=== PATIENT | female | born 1955 | race Caucasian/White ===

== ENCOUNTER 2016-06-13 15:01 | Inpatient (IN) | payer MEDICARE ==
[2016-06-13 15:08] VITALS: BMI 26.4
[2016-06-13 15:20] LABS: MPV 6.9 fL (7.4-10.4)
[2016-06-13 15:28] LABS: BLOOD UREA NITROGEN 10 MG/DL (7-17); CALCIUM 9.2 MG/DL (8.4-10.2); CALCULATED OSMOLALITY 248 MOs/Kg (270-290); CHLORIDE 81 mEq/L (98-107); GLUCOSE 256 mg/dL (70-99); TOTAL PROTEIN 7.9 G/DL (6.3-8.2)
[2016-06-13 15:31] LABS: PARTIAL THROMB. TIME 25.2 SEC (22-35); PT-INR 1.2; SODIUM LEVEL 124 mEq/L (137-146)
[2016-06-13 15:37] LABS: LEUKOCYTES/URINE NEG (NEGATIVE); NITRITE/URINE NEG (NEGATIVE); RBC/URINE 0-2 (0-5); URINE OCCULT BLOOD NEG (NEG/TRACE); WBC/URINE 0-2 (0-5)
[2016-06-13 15:46] LABS: SEG NEUTROPHIL 78 % (45-76)
[2016-06-13] MEDS ORDERED: SODIUM CHLORIDE 0.9% 10 ML FLUSH FLUSH PRN (16:56)
[2016-06-13] MEDS ORDERED: NS 1,000 ML IV ONE (16:56)
[2016-06-13] MEDS ORDERED: METHYLPREDNISOLONE 125 MG/2 ML VIAL IV ONE (17:09)
[2016-06-13] MEDS ORDERED: Albuterol/Ipratropium Neb 3 ML NEB NEB ONE (17:09)
[2016-06-13] MEDS ORDERED: ONDANSETRON HCL 4 MG/2 ML VIAL IV ONE (17:09)
--- NOTE | 2016-06-13 17:12 | EDPRACDOC ---
- General Information Information Source: Patient - History of Present Illness Onset: one week HPI: Pt c/o "not feeling well" x 1 week with nausea, fatigue, wheezing, non productive cough. Pt states went to PCP office for palpitations this morning and was sent for eval. Denies fever, earache, sore throat, cp, sob, abd pain, changes in bowel or bladder, rash, leg swelling. Symptoms Started: Reports: Gradually Relevant History: Reports: None Heart Rate (bpm): 120 Pulse is: Rapid Worsens with: Reports: Nothing Associated signs & symptoms: Reports: None Chest Pain Location: Reports: No Pain Pain Quality: Reports: None Pain Radiation: Reports: None <[place] Box - Last Filed: 06/13/16 17:51> <Elenita Scott - Last Filed: 06/13/16 19:15> - General Information Chief Complaint: Arrhythmia Stated Complaint: HEART PALP/NO CP SENT FROM DOCTOR'S OFFICE Time Seen by Provider: 06/13/16 16:55 Home Medications: Home Medications Lisinopril/Hydrochlorothiazide [Lisinopril-Hctz 20-25 mg Tab] 1 tab PO DAILY 07/19 MetFORMIN (Immediate Release) [GLUCOPHAGE Immed Release] 500 mg PO DAILY Paroxetine HCl [Paxil] 20 mg PO DAILY 10/08/13 Budesonide/Formoterol Fumarate [Symbicort 80-4.5 Mcg Inhaler] 2 puff INH BID Dexlansoprazole [Dexilant] 60 mg PO DAILY 03/22/16 Glipizide [Glipizide ER] 5 mg PO DAILY 06/13/16 Allergies/Adverse Reactions: Allergies Allergy/AdvReac Type Severity Reaction Status Date / Time codeine [Codeine] Allergy Unknown N&V,HALLUCI Verified 03/22/16 11:58 ALENA hydrocodone bitartrate Allergy Unknown N&V,HALLUCI Verified 03/22/16 11:58 [From Vicodin] ALENA oxycodone [Oxycodone] Allergy Unknown N&V,HALLUCI Verified 03/22/16 11:58 ALENA hydromorphone [From Dilaudid] Allergy See Verified 03/22/16 12:12 Comments Opioids - Morphine Analogues Allergy See Verified 02/06/17 17:13 Comments ED Past Medical History - History Reviewed Yes Nurses notes reviewed and agree except as marked - Patient Medical History Cardiac History: Reports: Atrial Fibrillation, Hypertension Respiratory History: Reports: Asthma GI/ History: Reports: Gastroesophageal Reflux Psychological History: Reports: Depression Systemic History: Reports: Diabetes Surgical History: Reports: Cholecystectomy - Social Medical History Smoking Status: Heavy tobacco smoker (5 or more cigarettes/day or daily pipe/ cigar) ETOH: None Substance Abuse: None <[place] Box - Last Filed: 06/13/16 17:51> EDM Review of Systems - Review of Systems Constitutional: Fatigue Ears: No Symptoms Reported. negative: Pain, Hearing Loss, Drainage, Ear Pulling Throat: No Symptoms Reported. negative: Pain, Swelling Nose: No Symptoms Reported. negative: Congestion, Bleeding, Discharge, Injection, Swelling, Deformity, Ecchymosis, Tender, Abrasion, Laceration Mouth: No Symptoms Reported. negative: Pain, Drooling Respiratory: Cough, Wheezing Cardiovascular: Palpitations Gastrointestinal: Nausea Genitourinary: No Symptoms Reported. negative: Dysuria, Hematuria, Frequency, Discharge, Bleeding, Testicular Pain, Neurological: No Symptoms Reported. negative: Headache, Dizziness, Seizure, Numbness, Weakness, Speech Difficulty, Gait Difficulty Musculoskeletal: No Symptoms Reported. negative: Neck, Chestwall, Ribs, Back, Shoulder, Arm, Elbow, Forearm, Wrist, Hand, Pelvis, Hip, Femur, Knee, Leg, Ankle , Foot Integumentary: No Symptoms Reported. negative: Itching, Rash, Bruising, Wound Allergic/Immunologic: No Symptoms Reported. negative: Hives, Itching Hematologic: No Symptoms Reported. negative: Lymphadenopathy, Easy Bruising, Easy Bleeding Psychiatric: No Symptoms Reported. negative: Anxiety, Depression, Hallucinations, Insomnia, Suicidal <[place] Box - Last Filed: 06/13/16 17:51> - Physical Exam Constitutional: Alert Oriented to: Time, Person, Place Last recorded Vital Signs: Last Vital Signs Temp 97.6 F 06/13/16 15:05 Pulse 112 06/13/16 17:04 Resp 20 06/13/16 17:04 BP 122/74 06/13/16 17:04 Pulse Ox 97 06/13/16 17:04 Oxygen Pulse Oxygen Saturation 97 O2 Device Room Air Oxygen Flow Rate Fraction of Inspired Oxygen ( FIO2) - HEENT Head: Normal ( normocephalic) Eye Exam: Normal (PERRL, EOMI, Sclera white) Neck: Normal (FROM, trachea at midline) - Respiratory/Cardiovascular Respiratory: Wheezes Cardiovascular: Tachycardia - GI Auscultation: Normal (NABS) Palpation: Normal (Soft,No rebound or guarding, non distended) Tenderness: Non tender - Musculoskeletal Back: Normal (Non-Tender) Extremities: Normal (Normal tone, Pulses 2+ No cyanosis or edema, FROM) - Integumentary Skin: Normal, Warm, Dry Lymphatics: Normal (no adenopathy) - Neurologic Memory Impaired: Normal Motor Function: Normal (Normal tone, Pulses 2+ No cyanosis or edema, FROM) Mood Description: Normal Perception: Normal <[place] Box - Last Filed: 06/13/16 17:51> - Physical Exam Last recorded Vital Signs: Last Vital Signs Temp 97.6 F 06/13/16 15:05 Pulse 120 H 06/13/16 17:52 Resp 20 06/13/16 17:04 BP 122/74 06/13/16 17:04 Pulse Ox 97 06/13/16 17:04 Oxygen Pulse Oxygen Saturation 97 O2 Device Room Air Oxygen Flow Rate Fraction of Inspired Oxygen ( FIO2) <Elenita Scott - Last Filed: 06/13/16 19:15> - Differential Diagnosis Atrial fibrillation, Sinus tachycardia, Electrolyte disorder, Hyperthyroidism - Results 06/13/16 15:09 06/13/16 15:09 WBC 9.5 xk/uL (3.8-10.8) 06/13/16 15:09 RBC 4.16 xM/uL (4.20-5.40) L 06/13/16 15:09 Hgb 16.3 g/dL (12.0-16.0) H 06/13/16 15:09 Hct 45.4 % (36-47) 06/13/16 15:09 MCV 109 fL (81-99) H 06/13/16 15:09 MCH 39.1 pg (27-32) H 06/13/16 15:09 MCHC 35.8 g/dl (33-36) 06/13/16 15:09 RDW 14.3 % (11.5-14.5) 06/13/16 15:09 Plt Count 228 xk/uL (130-400) 06/13/16 15:09 MPV 6.9 fL (7.4-10.4) L 06/13/16 15:09 Neut % (Auto) Cancelled 06/13/16 15:09 Lymph % (Auto) Cancelled 06/13/16 15:09 [place] % (Auto) Cancelled 06/13/16 15:09 Eos % (Auto) Cancelled 06/13/16 15:09 Baso % (Auto) Cancelled 06/13/16 15:09 Absolute Neuts (auto) Cancelled 06/13/16 15:09 Absolute Lymphs (auto) Cancelled 06/13/16 15:09 Seg Neuts % (Manual) 78 % (45-76) H 06/13/16 15:09 Band Neutrophils % 1 % (0-5) 06/13/16 15:09 Lymphocytes % (Manual) 16 % (17-44) L 06/13/16 15:09 Monocytes % (Manual) 3 % (0-10) 06/13/16 15:09 Eosinophils % (Manual) 2 % (0-5) 06/13/16 15:09 Absolute Neutrophils 7.51 xk/uL (1.7-8.2) 06/13/16 15:09 Absolute Lymphocytes 1.52 xk/uL (0.65-4.75) 06/13/16 15:09 Platelet Estimate Norm (NORMAL) 06/13/16 15:09 RBC Morphology Norm 06/13/16 15:09 PT 12.0 SEC (9.2-11.2) H 06/13/16 15:09 INR 1.2 06/13/16 15:09 APTT 25.2 SEC (22-35) 06/13/16 15:09 Sodium 124 mEq/L (137-146) L* 06/13/16 15:09 Potassium 3.5 mEq/L (3.5-5.1) 06/13/16 15:09 Chloride 81 mEq/L (98-107) L 06/13/16 15:09 Carbon Dioxide 32 mMOL/L (22-33) 06/13/16 15:09 Anion Gap 15 mEq/L (8-16) 06/13/16 15:09 BUN 10 MG/DL (7-17) 06/13/16 15:09 Creatinine 1.00 MG/DL (0.52-1.04) 06/13/16 15:09 Estimated GFR (MDRD) 56 mL/min (>=60) L 06/13/16 15:09 Glucose 256 mg/dL (70-99) H 06/13/16 15:09 Calculated Osmolality 248 MOs/Kg (270-290) L 06/13/16 15:09 Calcium 9.2 MG/DL (8.4-10.2) 06/13/16 15:09 Total Bilirubin 1.7 MG/DL (0.2-1.3) H 06/13/16 15:09 AST 88 IU/L (14-36) H 06/13/16 15:09 ALT 63 IU/L (9-52) H 06/13/16 15:09 Alkaline Phosphatase 81 IU/L (55-165) 06/13/16 15:09 Troponin I < 0.01 ng/mL (<.04) 06/13/16 15:09 Dkf-W-Sxuobeyvmlh Pept 54 pg/mL (0-900) 06/13/16 15:09 Total Protein 7.9 G/DL (6.3-8.2) 06/13/16 15:09 Albumin 4.5 G/DL (3.5-5.0) 06/13/16 15:09 Urine Color Yellow 06/13/16 15:15 Urine Clarity Clear 06/13/16 15:15 Urine pH 6.0 (5.0-8.0) 06/13/16 15:15 Ur Specific [place] 1.010 (1.003-1.035) 06/13/16 15:15 Urine Protein Neg (NEG/TRACE) 06/13/16 15:15 Urine Glucose (UA) Neg (NEGATIVE) 06/13/16 15:15 Urine Ketones Neg (NEGATIVE) 06/13/16 15:15 Urine Occult Blood Neg (NEG/TRACE) 06/13/16 15:15 Urine Nitrite Neg (NEGATIVE) 06/13/16 15:15 Urine Bilirubin Neg (NEGATIVE) 06/13/16 15:15 Urine Urobilinogen 2 MG/DL (0-1) H 06/13/16 15:15 Ur Leukocyte Esterase Neg (NEGATIVE) 06/13/16 15:15 Urine RBC 0-2 (0-5) 06/13/16 15:15 Urine WBC 0-2 (0-5) 06/13/16 15:15 Ur Epithelial Cells 1+ 06/13/16 15:15 Urine Bacteria Few (NEG/FEW) 06/13/16 15:15 Hyaline Casts 10-20 (0-2) H 06/13/16 15:15 Urine Mucus Occ (NEG/OCC) 06/13/16 15:15 Lab Results 06/13/16 06/13/16 06/13/16 15:15 15:09 15:09 WBC 9.5 RBC 4.16 L Hgb 16.3 H Hct 45.4 MCV 109 H MCH 39.1 H MCHC 35.8 RDW 14.3 Plt Count 228 MPV 6.9 L Neut % (Auto) Cancelled Lymph % (Auto) Cancelled [place] % (Auto) Cancelled Eos % (Auto) Cancelled Baso % (Auto) Cancelled Absolute Neuts (auto) Cancelled Absolute Lymphs (auto) Cancelled Seg Neuts % (Manual) 78 H Band Neutrophils % 1 Lymphocytes % (Manual) 16 L Monocytes % (Manual) 3 Eosinophils % (Manual) 2 Absolute Neutrophils 7.51 Absolute Lymphocytes 1.52 Platelet Estimate Norm RBC Morphology Norm PT 12.0 H INR 1.2 APTT 25.2 Sodium Potassium Chloride Carbon Dioxide Anion Gap BUN Creatinine Estimated GFR (MDRD) Glucose Calculated Osmolality Calcium Total Bilirubin AST ALT Alkaline Phosphatase Troponin I Wfe-L-Mipnenwiopo Pept Total Protein Albumin Urine Color Yellow Urine Clarity Clear Urine pH 6.0 Ur Specific [place] 1.010 Urine Protein Neg Urine Glucose (UA) Neg Urine Ketones Neg Urine Occult Blood Neg Urine Nitrite Neg Urine Bilirubin Neg Urine Urobilinogen 2 H Ur Leukocyte Esterase Neg Urine RBC 0-2 Urine WBC 0-2 Ur Epithelial Cells 1+ Urine Bacteria Few Hyaline Casts 10-20 H Urine Mucus Occ 06/13/16 15:09 WBC RBC Hgb Hct MCV MCH MCHC RDW Plt Count MPV Neut % (Auto) Lymph % (Auto) [place] % (Auto) Eos % (Auto) Baso % (Auto) Absolute Neuts (auto) Absolute Lymphs (auto) Seg Neuts % (Manual) Band Neutrophils % Lymphocytes % (Manual) Monocytes % (Manual) Eosinophils % (Manual) Absolute Neutrophils Absolute Lymphocytes Platelet Estimate RBC Morphology PT INR APTT Sodium 124 L* Potassium 3.5 Chloride 81 L Carbon Dioxide 32 Anion Gap 15 BUN 10 Creatinine 1.00 Estimated GFR (MDRD) 56 L Glucose 256 H Calculated Osmolality 248 L Calcium 9.2 Total Bilirubin 1.7 H AST 88 H ALT 63 H Alkaline Phosphatase 81 Troponin I < 0.01 Ukl-C-Xzofrmgwqwg Pept 54 Total Protein 7.9 Albumin 4.5 Urine Color Urine Clarity Urine pH Ur Specific [place] Urine Protein Urine Glucose (UA) Urine Ketones Urine Occult Blood Urine Nitrite Urine Bilirubin Urine Urobilinogen Ur Leukocyte Esterase Urine RBC Urine WBC Ur Epithelial Cells Urine Bacteria Hyaline Casts Urine Mucus - EKG EKG #1 Initial EKG Time: 15:05 Rate: bpm: 113 [place]: Normal Rhythm: ST Block: None ST: Nonsp - Diagnostic Imaging Chest Image interpreted by: Radiologist IMPRESSION: COPD. No active disease. <[place] Box E - Last Filed: 06/13/16 17:51> - Results 06/13/16 15:09 06/13/16 15:09 WBC 9.5 xk/uL (3.8-10.8) 06/13/16 15:09 RBC 4.16 xM/uL (4.20-5.40) L 06/13/16 15:09 Hgb 16.3 g/dL (12.0-16.0) H 06/13/16 15:09 Hct 45.4 % (36-47) 06/13/16 15:09 MCV 109 fL (81-99) H 06/13/16 15:09 MCH 39.1 pg (27-32) H 06/13/16 15:09 MCHC 35.8 g/dl (33-36) 06/13/16 15:09 RDW 14.3 % (11.5-14.5) 06/13/16 15:09 Plt Count 228 xk/uL (130-400) 06/13/16 15:09 MPV 6.9 fL (7.4-10.4) L 06/13/16 15:09 Neut % (Auto) Cancelled 06/13/16 15:09 Lymph % (Auto) Cancelled 06/13/16 15:09 [place] % (Auto) Cancelled 06/13/16 15:09 Eos % (Auto) Cancelled 06/13/16 15:09 Baso % (Auto) Cancelled 06/13/16 15:09 Absolute Neuts (auto) Cancelled 06/13/16 15:09 Absolute Lymphs (auto) Cancelled 06/13/16 15:09 Seg Neuts % (Manual) 78 % (45-76) H 06/13/16 15:09 Band Neutrophils % 1 % (0-5) 06/13/16 15:09 Lymphocytes % (Manual) 16 % (17-44) L 06/13/16 15:09 Monocytes % (Manual) 3 % (0-10) 06/13/16 15:09 Eosinophils % (Manual) 2 % (0-5) 06/13/16 15:09 Absolute Neutrophils 7.51 xk/uL (1.7-8.2) 06/13/16 15:09 Absolute Lymphocytes 1.52 xk/uL (0.65-4.75) 06/13/16 15:09 Platelet Estimate Norm (NORMAL) 06/13/16 15:09 RBC Morphology Norm 06/13/16 15:09 PT 12.0 SEC (9.2-11.2) H 06/13/16 15:09 INR 1.2 06/13/16 15:09 APTT 25.2 SEC (22-35) 06/13/16 15:09 Sodium 124 mEq/L (137-146) L* 06/13/16 15:09 Potassium 3.5 mEq/L (3.5-5.1) 06/13/16 15:09 Chloride 81 mEq/L (98-107) L 06/13/16 15:09 Carbon Dioxide 32 mMOL/L (22-33) 06/13/16 15:09 Anion Gap 15 mEq/L (8-16) 06/13/16 15:09 BUN 10 MG/DL (7-17) 06/13/16 15:09 Creatinine 1.00 MG/DL (0.52-1.04) 06/13/16 15:09 Estimated GFR (MDRD) 56 mL/min (>=60) L 06/13/16 15:09 Glucose 256 mg/dL (70-99) H 06/13/16 15:09 Calculated Osmolality 248 MOs/Kg (270-290) L 06/13/16 15:09 Calcium 9.2 MG/DL (8.4-10.2) 06/13/16 15:09 Total Bilirubin 1.7 MG/DL (0.2-1.3) H 06/13/16 15:09 AST 88 IU/L (14-36) H 06/13/16 15:09 ALT 63 IU/L (9-52) H 06/13/16 15:09 Alkaline Phosphatase 81 IU/L (55-165) 06/13/16 15:09 Troponin I < 0.01 ng/mL (<.04) 06/13/16 15:09 Wqf-Y-Qokdeqgewwh Pept 54 pg/mL (0-900) 06/13/16 15:09 Total Protein 7.9 G/DL (6.3-8.2) 06/13/16 15:09 Albumin 4.5 G/DL (3.5-5.0) 06/13/16 15:09 TSH 0.80 uIU/mL (0.5-4.67) 06/13/16 15:09 Free T4 1.54 ng/dL (0.78-2.19) 06/13/16 15:09 Free T3 3.42 pg/mL (2.77-5.27) 06/13/16 15:09 Urine Color Yellow 06/13/16 15:15 Urine Clarity Clear 06/13/16 15:15 Urine pH 6.0 (5.0-8.0) 06/13/16 15:15 Ur Specific [place] 1.010 (1.003-1.035) 06/13/16 15:15 Urine Protein Neg (NEG/TRACE) 06/13/16 15:15 Urine Glucose (UA) Neg (NEGATIVE) 06/13/16 15:15 Urine Ketones Neg (NEGATIVE) 06/13/16 15:15 Urine Occult Blood Neg (NEG/TRACE) 06/13/16 15:15 Urine Nitrite Neg (NEGATIVE) 06/13/16 15:15 Urine Bilirubin Neg (NEGATIVE) 06/13/16 15:15 Urine Urobilinogen 2 MG/DL (0-1) H 06/13/16 15:15 Ur Leukocyte Esterase Neg (NEGATIVE) 06/13/16 15:15 Urine RBC 0-2 (0-5) 06/13/16 15:15 Urine WBC 0-2 (0-5) 06/13/16 15:15 Ur Epithelial Cells 1+ 06/13/16 15:15 Urine Bacteria Few (NEG/FEW) 06/13/16 15:15 Hyaline Casts 10-20 (0-2) H 06/13/16 15:15 Urine Mucus Occ (NEG/OCC) 06/13/16 15:15 Lab Results 06/13/16 06/13/16 06/13/16 15:15 15:09 15:09 WBC RBC Hgb Hct MCV MCH MCHC RDW Plt Count MPV Neut % (Auto) Lymph % (Auto) [place] % (Auto) Eos % (Auto) Baso % (Auto) Absolute Neuts (auto) Absolute Lymphs (auto) Seg Neuts % (Manual) Band Neutrophils % Lymphocytes % (Manual) Monocytes % (Manual) Eosinophils % (Manual) Absolute Neutrophils Absolute Lymphocytes Platelet Estimate RBC Morphology PT 12.0 H INR 1.2 APTT 25.2 Sodium Potassium Chloride Carbon Dioxide Anion Gap BUN Creatinine Estimated GFR (MDRD) Glucose Calculated Osmolality Calcium Total Bilirubin AST ALT Alkaline Phosphatase Troponin I Kbn-V-Lduwmqjwdrc Pept Total Protein Albumin TSH 0.80 Free T4 1.54 Free T3 3.42 Urine Color Yellow Urine Clarity Clear Urine pH 6.0 Ur Specific [place] 1.010 Urine Protein Neg Urine Glucose (UA) Neg Urine Ketones Neg Urine Occult Blood Neg Urine Nitrite Neg Urine Bilirubin Neg Urine Urobilinogen 2 H Ur Leukocyte Esterase Neg Urine RBC 0-2 Urine WBC 0-2 Ur Epithelial Cells 1+ Urine Bacteria Few Hyaline Casts 10-20 H Urine Mucus Occ 06/13/16 06/13/16 15:09 15:09 WBC 9.5 RBC 4.16 L Hgb 16.3 H Hct 45.4 MCV 109 H MCH 39.1 H MCHC 35.8 RDW 14.3 Plt Count 228 MPV 6.9 L Neut % (Auto) Cancelled Lymph % (Auto) Cancelled [place] % (Auto) Cancelled Eos % (Auto) Cancelled Baso % (Auto) Cancelled Absolute Neuts (auto) Cancelled Absolute Lymphs (auto) Cancelled Seg Neuts % (Manual) 78 H Band Neutrophils % 1 Lymphocytes % (Manual) 16 L Monocytes % (Manual) 3 Eosinophils % (Manual) 2 Absolute Neutrophils 7.51 Absolute Lymphocytes 1.52 Platelet Estimate Norm RBC Morphology Norm PT INR APTT Sodium 124 L* Potassium 3.5 Chloride 81 L Carbon Dioxide 32 Anion Gap 15 BUN 10 Creatinine 1.00 Estimated GFR (MDRD) 56 L Glucose 256 H Calculated Osmolality 248 L Calcium 9.2 Total Bilirubin 1.7 H AST 88 H ALT 63 H Alkaline Phosphatase 81 Troponin I < 0.01 Khm-M-Wdgjojikvjb Pept 54 Total Protein 7.9 Albumin 4.5 TSH Free T4 Free T3 Urine Color Urine Clarity Urine pH Ur Specific [place] Urine Protein Urine Glucose (UA) Urine Ketones Urine Occult Blood Urine Nitrite Urine Bilirubin Urine Urobilinogen Ur Leukocyte Esterase Urine RBC Urine WBC Ur Epithelial Cells Urine Bacteria Hyaline Casts Urine Mucus <Elenita Scott N - Last Filed: 06/13/16 19:15> - Departure Education/Counseling Given To: Patient Education/Counseling Given Regarding: Diagnosis, Treatment <[place] Box - Last Filed: 06/13/16 17:51> - Departure Yes I personally saw and evaluated the patient. Disposition: Admit IP To This Hospital Decision to Admit Time: 19:15 Decision to admit date: 06/13/16 Decision to admit: from ED - Physician Consulted Hospitalist Time Called: 19:10 Provider Called: Abisai Bhatia Time Vending Machine Repairer Returned Call: 19:15 <Elenita Scott N - Last Filed: 06/13/16 19:15> - Departure Condition: Stable Final Diagnosis: COPD exacerbation, Hyponatremia Referrals: Jayde Saldivar MD [Primary Care Provider] - One Week Prescriptions: No Action Paroxetine HCl [Paxil] 20 mg PO DAILY MetFORMIN (Immediate Release) [GLUCOPHAGE Immed Release] 500 mg PO DAILY Lisinopril/Hydrochlorothiazide [Lisinopril-Hctz 20-25 mg Tab] 1 tab PO DAILY Dexlansoprazole [Dexilant] 60 mg PO DAILY Budesonide/Formoterol Fumarate [Symbicort 80-4.5 Mcg Inhaler] 2 puff INH BID Glipizide [Glipizide ER] 5 mg PO DAILY
--- NOTE | 2016-06-13 17:50 | DIRPT ---
CLINICAL DATA: Palpitations, cough. EXAM: CHEST 2 VIEW COMPARISON: 03/22/2016 FINDINGS: There is hyperinflation of the lungs compatible with COPD. Heart and mediastinal contours are within normal limits. No focal opacities or effusions. No acute bony abnormality. IMPRESSION: COPD. No active disease. Electronically Signed By: Bonifacio Garcia M.D. On: 06/13/2016 17:47
[2016-06-13 18:09] LABS: FREE T3 3.42 pg/mL (2.77-5.27); FREE T4 1.54 ng/dL (0.78-2.19)
[2016-06-13 18:23] LABS: hTSH 0.8 uIU/mL (0.5-4.67)
[2016-06-13] MEDS ORDERED: ACETAMINOPHEN 325 MG/TAB TABLET PO PRN (20:10)
[2016-06-13] MEDS ORDERED: DEXTROSE 25 GM/50 ML PFS IV PRN (20:15)
[2016-06-13] MEDS ORDERED: GLUCOSE (ORAL GEL) 15 GM TUBE PO PRN (20:15)
[2016-06-13] MEDS ORDERED: GLUCAGON 1 MG VIAL SQ PRN (20:15)
--- NOTE | 2016-06-13 20:18 | HISTPHYS ---
- Chief Complaint Hyponatremia - History of Present Illness This is a pleasant 61-year-old female with a history of diabetes and hypertension, as well as COPD who was being admitted to the hospital due to increased cough, possible COPD exacerbation as well as hyponatremia. Patient says that she has been feeling weak and ill for the last 2-3 weeks, feeling weak overall, denies any fevers or chills, she has a continued cough which is chronic for her, it is slightly more productive than usual, but she denies any hypoxia or shortness of breath at rest or with exertion. She says that for the last couple weeks she has been eating she is vomited most of the time, she does have IBS and some chronic diarrhea, but the vomiting has been new. She has not had any sick contacts, denies any body aches or aches in her joints. No muscle aches. Note that her sputum is not discolored, but is little bit more than usual. She is also quite wheezy. Today, she noticed palpitations and went to see her primary care physician, who sent her to the emergency department. Here , she was found to have possible COPD exacerbation, and also a sodium of 124 which is new for her. However, she does note that her primary care doctor told her previously to try and drink less fluids, as her sodium was a little bit on the low side. No new medications. - Medical History Cardiac History: Reports: Atrial Fibrillation, Hypertension Respiratory History: Reports: Asthma GI/ History: Reports: Gastroesophageal Reflux Systemic History: Reports: Diabetes Psychological History: Reports: Depression - Surgical History Reports: Cholecystectomy - Medictions/Allergies Allergies codeine [Codeine] Allergy (Unknown, Verified 03/22/16 11:58) N&V,HALLUCINATE hydrocodone bitartrate [From Vicodin] Allergy (Unknown, Verified 03/22/16 11:58) N&V,HALLUCINATE oxycodone [Oxycodone] Allergy (Unknown, Verified 03/22/16 11:58) N&V,HALLUCINATE hydromorphone [From Dilaudid] Allergy (Verified 03/22/16 12:12) See Comments HALLUCINATIONS Opioids - Morphine Analogues Allergy (Verified 06/13/16 17:13) See Comments PT STATES SHE CANT TOLERATE ANY OPIATES. Home Medications Lisinopril/Hydrochlorothiazide [Lisinopril-Hctz 20-25 mg Tab] 1 tab PO DAILY 07/19 MetFORMIN (Immediate Release) [GLUCOPHAGE Immed Release] 500 mg PO DAILY Paroxetine HCl [Paxil] 20 mg PO DAILY 10/08/13 Budesonide/Formoterol Fumarate [Symbicort 80-4.5 Mcg Inhaler] 2 puff INH BID Dexlansoprazole [Dexilant] 60 mg PO DAILY 03/22/16 Glipizide [Glipizide ER] 5 mg PO DAILY 06/13/16 - Social History Smoking Status: Heavy tobacco smoker (5 or more cigarettes/day or daily pipe/ cigar) - Review of Systems Yes All systems reviewed and were negative except as marked (And as mentioned in the history of present illness above.) - Physical Exam Vital Signs: Initial Vitals Temperature 97.6 F 06/13/16 15:05 Pulse Rate 121 H 06/13/16 15:05 Respiratory Rate 18 06/13/16 15:05 Blood Pressure 166/74 06/13/16 15:05 Pulse Oxygen Saturation 97 06/13/16 15:05 - Focused CV Perfusion Exam Vital Signs: Last Vital Signs Temp 97.6 F 06/13/16 15:05 Pulse 120 H 06/13/16 17:52 Resp 20 06/13/16 17:04 BP 122/74 06/13/16 17:04 Pulse Ox 97 06/13/16 17:04 - Lab Results Laboratory Tests 06/13/16 06/13/16 06/13/16 15:09 15:09 15:09 WBC 9.5 Hgb 16.3 H Hct 45.4 Plt Count 228 INR 1.2 Sodium 124 L* Potassium 3.5 BUN 10 Creatinine 1.00 - Diagnostic Findings Chest x-ray: There is hyperinflation of the lungs compatible with COPD. Heart and mediastinal contours are within normal limits. No focal opacities or effusions. No acute bony abnormality. - Assessment (1) Hyponatremia E87.1 - HYPO-OSMOLALITY AND HYPONATREMIA Acute Likely multifactorial, related to increased free water intake, increased insensible losses due to recent increased cough, as well as some vomiting all of which may have resulted in some dehydration related hyponatremia. Notice that the patient is also on hydrochlorothiazide, which is not a new medication but can also be causing some hyponatremia. Will treat by adding of 2 L fluid restriction per 24 hour time period, discontinuing hydrochlorothiazide for now, and hydrating gently with normal saline. She is not symptomatic of her hyponatremia at this time, will check sodium level again in the morning. (2) Palpitation R00.2 - PALPITATIONS Acute She has sinus tachycardia here in the hospital. (3) DMII (diabetes mellitus, type 2) E11.9 - TYPE 2 DIABETES MELLITUS WITHOUT COMPLICATIONS Acute Continue home medications, check hemoglobin A1c and urine microalbumin. Diabetic diet. Add sliding scale insulin. (4) HTN (hypertension) I10 - ESSENTIAL (PRIMARY) HYPERTENSION Acute Continue home medications, but no hydrochlorothiazide as noted above. (5) COPD exacerbation J44.1 - CHRONIC OBSTRUCTIVE PULMONARY DISEASE W (ACUTE) EXACERBATION Ruled- out There is some suspicion of COPD exacerbation, but she has no leukocytosis , no significantly increased cough, no chest x-ray abnormality and no increased wheezing or hypoxia. As such, will not be treating for COPD exacerbation.
[2016-06-13] MEDS ORDERED: AZITHROMYCIN 500 MG in D5W 250 ML IV SCH (21:00)
[2016-06-13] MEDS ORDERED: Non-Formulary Medication ITEM (Budesonide/Formoterol Fumarate [Symbicort 80-4.5 Mcg Inha INH SCH (21:00)
[2016-06-13] MEDS ORDERED: METHYLPREDNISOLONE 40 MG/1 ML VIAL IV SCH (21:00)
[2016-06-13] MEDS: NS 1,000 ML IV SCH (21:35)
[2016-06-13] MEDS ORDERED: Vaccine Screening Complete SCH (22:00)
[2016-06-13] MEDS ORDERED: CEFTRIAXONE 1 GM in D5W 100 ML IV SCH (22:00)
[2016-06-13] MEDS: REGULAR INSULIN 100 UNITS/ML - 3 ML VIAL SQ SCH ×2 (22:23→23:49)
[2016-06-13] MEDS: ENOXAPARIN 40 MG/0.4 ML PFS SQ SCH (22:24)
[2016-06-13] MEDS ORDERED: LORAZEPAM 1 MG TAB PO PRN ×2 (23:11)
[2016-06-13] MEDS ORDERED: LORAZEPAM 2 MG/ML VIAL IV PRN ×3 (23:11)
[2016-06-13] MEDS ORDERED: Alcohol Withdrawal Scale Orders XX SCH (23:45)
[2016-06-13] MEDS: FOLIC ACID 1 MG, THIAMINE 100 MG, VITAMINS, MULTIPLE 10 ML in NS 1,000 ML IV SCH ×4 (23:48)
[2016-06-13] MEDS: LORAZEPAM 1 MG TAB PO PRN (23:49)
[2016-06-14] MEDS ORDERED: VITAMINS,PRENATAL TABLET PO ONE
[2016-06-14] MEDS: Albuterol/Ipratropium Neb 3 ML NEB NEB SCH ×4 (02:17→19:34)
[2016-06-14] MEDS: REGULAR INSULIN 100 UNITS/ML - 3 ML VIAL SQ SCH ×4 (05:21→21:52)
[2016-06-14] MEDS: PANTOPRAZOLE 40 MG TAB PO SCH ×2 (05:24→05:26)
[2016-06-14] MEDS: NS 1,000 ML IV SCH ×3 (05:26→21:51)
[2016-06-14] MEDS ORDERED: REGULAR INSULIN 100 UNITS/ML - 3 ML VIAL IV ONE (07:07)
[2016-06-14] MEDS: BUDESONIDE 0.5 MG NEB NEB SCH ×2 (07:19→19:37)
[2016-06-14 08:07] LABS: MPV 7.4 fL (7.4-10.4)
[2016-06-14 08:14] LABS: BLOOD UREA NITROGEN 13 MG/DL (7-17); CALCIUM 9.1 MG/DL (8.4-10.2); CALCULATED OSMOLALITY 260 MOs/Kg (270-290); CHLORIDE 90 mEq/L (98-107); GLUCOSE 224 mg/dL (70-99); SODIUM LEVEL 131 mEq/L (137-146)
[2016-06-14] MEDS: PAROXETINE 20 MG TAB PO SCH (08:43)
[2016-06-14] MEDS: LISINOPRIL 20 MG TAB PO SCH (08:43)
[2016-06-14] MEDS: MetFORMIN 500 MG IMMED RELEASE TAB PO SCH (08:43)
[2016-06-14] MEDS: GLIPIZIDE 5 MG PO SCH (08:43)
[2016-06-14] MEDS ORDERED: Non-Formulary Medication ITEM (Dexlansoprazole [Dexilant] 60 MG) PO SCH (09:00)
--- NOTE | 2016-06-14 09:15 | DIRPT ---
CLINICAL DATA: Palpitations, difficulty breathing EXAM: CHEST 2 VIEW COMPARISON: 06/13/2016 FINDINGS: Cardiac shadow is within normal limits. The lungs are well aerated bilaterally. No focal infiltrate or sizable effusion is seen. Postsurgical changes in the cervical spine are noted. No acute bony abnormality is noted. Chronic compression deformity in the lower thoracic spine is seen. IMPRESSION: No active cardiopulmonary disease. Electronically Signed By: Deangelo Goodwin M.D. On: 06/14/2016 09:12
--- NOTE | 2016-06-14 15:33 | GENMEDPROG ---
Subjective Note: Pleasant 61-year-old female fairly heavy drinker from best I can discern presented to the emergency department last night with hyponatremia. She states she drinks a couple of half pt of whiskey at night but not every night. Sodium levels are improving today. Notes Reviewed: Yes: Events from last night noted and discussed with Clinical Staff Current Medication List: Reviewed Currently: Reports: Cough, SOB, Tobacco Use/Hx, Alcohol Hx, Ambulating. Denies : Wheezing, Sputum, Fever/Chills DVT Prophylaxis: Yes - Physical Examination Vital Signs and I&O: Last Vital Signs Temp 98.8 F 06/14/16 13:28 Pulse 104 06/14/16 13:28 Resp 18 06/14/16 13:28 BP 148/66 06/14/16 13:28 Pulse Ox 96 06/14/16 13:28 Oxygen Pulse Oxygen Saturation 96 O2 Device Room Air Oxygen Flow Rate Fraction of Inspired Oxygen ( FIO2) Intake & Output 06/11/16 06/12/16 06/13/16 06/14/16 23:59 23:59 23:59 23:59 Intake Total 1390 2355 Output Total 1000 Balance 390 2355 General: Alert, Oriented x3, No acute distress, Well appearing, Well nourished HEENT: Normal (Normocephalic, atraumatic;EOMI.Sclera white, Nares patent, without discharge or bleeding. No oropharyngeal lesions or erythema. Mucous membranes are dry.) Neck: Non-tender, Full range of motion, Normal Trachea alignment, Normal inspection (No cervical lymphadenopathy. No supraclavicular lymphadenopathy.), No Masses palpable, Supple Lymphatics: Normal (no adenopathy) Respiratory: Diminished, Rhonchi. negative: Stridor, Tachypnea Cardiovascular: Regular rate and rhythm (No bradycardia or tachycardia), Normal S1, No Gallops,Rubs/Murmurs, Normal S2, Good Pedal Pulses (DP pulses 2+ bilaterally) GI: Normal bowel sounds (normal active sounds), Soft (non-distended), Non tender , No hepatospenomegaly, No masses Extremities/Musculoskeletal: Normal pulses (DP pulses 2+ bilaterally) Skin: Warm,Dry and Intact, No rashes, No significant lesion Neurological: Other (Significant tremor of the hands bilaterally) Psych/Mental Status: Appropriate Lab/DI/Studies Reviewed: Abnormal Lab Results 06/13/16 06/13/16 06/13/16 15:09 15:09 15:09 RBC 4.16 L Hgb 16.3 H MCV 109 H MCH 39.1 H MPV 6.9 L Seg Neuts % (Manual) 78 H Lymphocytes % (Manual) 16 L Sodium 124 L* Potassium Chloride 81 L Estimated GFR (MDRD) 56 L Glucose 256 H POC Capillary Glucose Hemoglobin A1c 6.2 H Calculated Osmolality 248 L Total Bilirubin 1.7 H AST 88 H ALT 63 H Urine Urobilinogen Hyaline Casts 06/13/16 06/13/16 06/13/16 15:15 22:23 23:44 RBC Hgb MCV MCH MPV Seg Neuts % (Manual) Lymphocytes % (Manual) Sodium Potassium Chloride Estimated GFR (MDRD) Glucose POC Capillary Glucose 470 H 475 H Hemoglobin A1c Calculated Osmolality Total Bilirubin AST ALT Urine Urobilinogen 2 H Hyaline Casts 10-20 H 06/14/16 06/14/16 06/14/16 02:29 05:19 07:00 RBC Hgb MCV MCH MPV Seg Neuts % (Manual) Lymphocytes % (Manual) Sodium 131 L D Potassium 3.2 L Chloride 90 L Estimated GFR (MDRD) Glucose 224 H POC Capillary Glucose 327 H 284 H Hemoglobin A1c Calculated Osmolality 260 L Total Bilirubin AST ALT Urine Urobilinogen Hyaline Casts 06/14/16 06/14/16 06/14/16 07:00 07:31 11:37 RBC 3.62 L Hgb MCV 110 H MCH 39.6 H MPV Seg Neuts % (Manual) Lymphocytes % (Manual) Sodium Potassium Chloride Estimated GFR (MDRD) Glucose POC Capillary Glucose 229 H 281 H Hemoglobin A1c Calculated Osmolality Total Bilirubin AST ALT Urine Urobilinogen Hyaline Casts EXAM: CHEST 2 VIEW COMPARISON: 06/13/2016 FINDINGS: Cardiac shadow is within normal limits. The lungs are well aerated bilaterally. No focal infiltrate or sizable effusion is seen. Postsurgical changes in the cervical spine are noted. No acute bony abnormality is noted. Chronic compression deformity in the lower thoracic spine is seen. IMPRESSION: No active cardiopulmonary disease. Electronically Signed By: Deangelo Goodwin M.D. On: 06/14/2016 09:12 - Assessment (1) Hyponatremia Acute E87.1 - HYPO-OSMOLALITY AND HYPONATREMIA Comment/Plan: Likely multifactorial but improving. Continue to hold hydrochlorothiazide and continue free water restriction. (2) Palpitation Acute R00.2 - PALPITATIONS Comment/Plan: She may have a little bit of holiday heart associated with her alcohol use. No evidence of that here in the hospital. (3) DMII (diabetes mellitus, type 2) Acute E11.9 - TYPE 2 DIABETES MELLITUS WITHOUT COMPLICATIONS Qualifiers: Diabetes mellitus complication status: with hyperglycemia Diabetes mellitus tank terminal gauger insulin use: without tank terminal gauger use Qualified Code(s): E11.65 - Type 2 diabetes mellitus with hyperglycemia Comment/Plan: Continue home medications, check hemoglobin A1c and urine microalbumin. Diabetic diet. Add sliding scale insulin. Diabetes should improve once alcohol drinking is her but (4) HTN (hypertension) Acute I10 - ESSENTIAL (PRIMARY) HYPERTENSION Comment/Plan: Continue home medications, but no hydrochlorothiazide as noted above. (5) COPD exacerbation Ruled-out J44.1 - CHRONIC OBSTRUCTIVE PULMONARY DISEASE W (ACUTE) EXACERBATION Comment/Plan: I believe the patient has some degree of CHRONIC OBSTRUCTIVE PULMONARY DISEASE but currently does not have exacerbation. I think her lung sounds are baseline given the amount of smoking she participates in. - Plan Continue hydration patient ambulate in halls Disposition Plan: Hopefully home in 24-48 hours Case Care Discussed with: Patient, Family, Nursing Staff Education/Counseling Given To: Patient, Family Member Education/Counseling Given Regarding: Diagnosis, Treatment, Prognosis, Follow Up , Disposition Plan Total Time: 45 min Critical Care: No Couseling Time (>50% in counseling/coordination): No
[2016-06-14] MEDS: ENOXAPARIN 40 MG/0.4 ML PFS SQ SCH (16:45)
[2016-06-14] MEDS: LORAZEPAM 1 MG TAB PO PRN (21:58)
[2016-06-14] MEDS: FOLIC ACID 1 MG, THIAMINE 100 MG, VITAMINS, MULTIPLE 10 ML in NS 1,000 ML IV SCH ×4 (23:40)
[2016-06-15] MEDS: Albuterol/Ipratropium Neb 3 ML NEB NEB SCH ×3 (01:45→15:30)
[2016-06-15 05:41] VITALS: TEMP 98.5
[2016-06-15] MEDS: PANTOPRAZOLE 40 MG TAB PO SCH (05:55)
[2016-06-15] MEDS: REGULAR INSULIN 100 UNITS/ML - 3 ML VIAL SQ SCH ×2 (05:56→11:31)
[2016-06-15 07:35] LABS: MPV 7.1 fL (7.4-10.4)
[2016-06-15] MEDS: BUDESONIDE 0.5 MG NEB NEB SCH (07:57)
[2016-06-15 08:05] LABS: BLOOD UREA NITROGEN 12 MG/DL (7-17); CALCIUM 8.3 MG/DL (8.4-10.2); CALCULATED OSMOLALITY 266 MOs/Kg (270-290); CHLORIDE 100 mEq/L (98-107); GLUCOSE 135 mg/dL (70-99); SODIUM LEVEL 137 mEq/L (137-146)
[2016-06-15] MEDS: PAROXETINE 20 MG TAB PO SCH (08:18)
[2016-06-15] MEDS: GLIPIZIDE 5 MG PO SCH (08:18)
[2016-06-15] MEDS: MetFORMIN 500 MG IMMED RELEASE TAB PO SCH (08:18)
[2016-06-15] MEDS: LISINOPRIL 20 MG TAB PO SCH (08:18)
[2016-06-15 09:47] VITALS: BP 161/65; PULSE 96
--- NOTE | 2016-06-15 13:25 | PCM.DCS92 ---
- Final/Secondary Discharge Diagnosis (1) Hyponatremia Acute E87.1 - HYPO-OSMOLALITY AND HYPONATREMIA Comment: Likely multifactorial but improving. Continue to hold hydrochlorothiazide and continue free water restriction. (2) Palpitation Acute R00.2 - PALPITATIONS Comment: She may have a little bit of holiday heart associated with her alcohol use. No evidence of that here in the hospital. (3) DMII (diabetes mellitus, type 2) Acute E11.9 - TYPE 2 DIABETES MELLITUS WITHOUT COMPLICATIONS with hyperglycemia without rat exterminator use E11.65 - Type 2 diabetes mellitus with hyperglycemia Comment: Continue home medications, check hemoglobin A1c and urine microalbumin. Diabetic diet. Add sliding scale insulin. Diabetes should improve once alcohol drinking is her but (4) HTN (hypertension) Acute I10 - ESSENTIAL (PRIMARY) HYPERTENSION Comment: Continue home medications, but no hydrochlorothiazide as noted above. (5) COPD exacerbation Ruled-out J44.1 - CHRONIC OBSTRUCTIVE PULMONARY DISEASE W (ACUTE) EXACERBATION Comment: I believe the patient has some degree of CHRONIC OBSTRUCTIVE PULMONARY DISEASE but currently does not have exacerbation. I think her lung sounds are baseline given the amount of smoking she participates in. (6) Tobacco abuse Chronic Z72.0 - TOBACCO USE Present on Admission: Yes Plan/Goal/Comment: Patient counseled for 11 minutes on the day of discharge to discontinue smoking. She feels that she will be able to do so because she is able to "turn on and turn off things like that". (7) Alcohol use Chronic Z78.9 - OTHER SPECIFIED HEALTH STATUS Present on Admission: Yes Plan/Goal/Comment: Explained to patient that her tremulousness is directly related to her alcohol use. And that is discontinuing use of alcohol will preserve her brain and liver function for years to come. Discharge Disposition: Home Discharge Condition: Improved Cognitive Discharge Status: Unimpaired Fuctional Discharge Status: Independent Physician Follow up/Referrals: Jayde Saldivar MD [Primary Care Provider] - One Week Home Medications / New Prescriptions: No Action Paroxetine HCl [Paxil] 20 mg PO DAILY MetFORMIN (Immediate Release) [GLUCOPHAGE Immed Release] 500 mg PO DAILY Lisinopril/Hydrochlorothiazide [Lisinopril-Hctz 20-25 mg Tab] 1 tab PO DAILY Dexlansoprazole [Dexilant] 60 mg PO DAILY Budesonide/Formoterol Fumarate [Symbicort 80-4.5 Mcg Inhaler] 2 puff INH BID Glipizide [Glipizide ER] 5 mg PO DAILY Discharge Home Medication List MetFORMIN (Immediate Release) [GLUCOPHAGE Immed Release] 500 mg PO DAILY [History Confirmed 06/13/16] Paroxetine HCl [Paxil] 20 mg PO DAILY 10/08/13 [History Confirmed 06/13/16] Budesonide/Formoterol Fumarate [Symbicort 80-4.5 Mcg Inhaler] 2 puff INH BID [History Confirmed 06/13/16] Dexlansoprazole [Dexilant] 60 mg PO DAILY 03/22/16 [History Confirmed 06/13/16] Glipizide [Glipizide ER] 5 mg PO DAILY 06/13/16 [History Confirmed 06/13/16] Azithromycin 500 mg PO DAILY #3 tablet 06/15/16 [Rx] Lisinopril [Zestril] 20 mg PO DAILY #30 tablet 06/15/16 [Rx] Prednisone [Sterapred 6 Day Dose Pack] 21 tab PO DAILY #1 pack 06/15/16 [Rx] Thiamine [Thiamine, Vitamin B-1] 100 mg PO DAILY@1200 #30 tablet 06/15/16 [Rx] Vitamins, [ Vitamin] 1 tab PO DAILY@1200 #30 tablet 06/15/16 [ Rx] New Discharge Medications (Rx) Azithromycin 500 mg PO DAILY #3 tablet 06/15/16 [Rx] Lisinopril [Zestril] 20 mg PO DAILY #30 tablet 06/15/16 [Rx] Prednisone [Sterapred 6 Day Dose Pack] 21 tab PO DAILY #1 pack 06/15/16 [Rx] Thiamine [Thiamine, Vitamin B-1] 100 mg PO DAILY@1200 #30 tablet 06/15/16 [Rx] Vitamins, [ Vitamin] 1 tab PO DAILY@1200 #30 tablet 06/15/16 [ Rx] O2 Device: Room Air Diet at Discharge: As Tolerated Activity: No Restrictions Call Office For: Worsening Symptoms, Fever over 100.5, Pain Uncontrolled By Meds Discontinue use of:: Alcohol, All Types of Tobacco - DC Summary Notes Hospital Course Note:: Discharge summary on patient named PHIL RECINOS admitted to [facility] on 06/13/16 by Abisai Bhatia MD. Date of discharge is []. 61-year-old female admitted tremulous with severe hyponatremia. Found to be a heavy drinker and heavy smoker. She was also found to be taking hydrochlorothiazide with her lisinopril. Hydrochlorothiazide was discontinued the lisinopril was continue with treatment of her blood pressure. Over the ensuing days she had significant relief of her palpitations. Her sugars were well controlled and today on the day of discharge she has ambulated in the halls on room air with an O2 sat 90%. She is stable for discharge home will follow-up with primary care physician in next 1-2 weeks. She has reached maximal benefit of hospitalization Total Time: 45 minutes - Physical Exam Vital Signs: Last Vital Signs Temp 98.5 F 06/15/16 05:39 Pulse 96 06/15/16 09:45 Resp 20 06/15/16 09:45 BP 161/65 06/15/16 09:45 Pulse Ox 96 06/15/16 09:45 Oxygen Pulse Oxygen Saturation 96 O2 Device Room Air Oxygen Flow Rate Fraction of Inspired Oxygen ( FIO2) Constitutional: Alert Oriented to: Time, Person, Place - HEENT Head: Normal ( normocephalic) Eye: Normal (PERRL, EOMI, Sclera white) Oropharynx: Normal (Pharynx: Moist without exudate,Gums-no swelling, No oropharyngeal lesions or erythema, Mucous membranes are dry.) Nose: No Symptoms Reported. negative: Congestion, Bleeding, Discharge, Injection, Swelling, Deformity, Ecchymosis, Tender, Abrasion, Laceration - Respiratory/Cardiovascular Respiratory: Diminished, Rhonchi. negative: Stridor, Tachypnea - GI Auscultation: Normal (NABS) Palpation: Normal (Soft,No rebound or guarding, non distended) Tenderness: Non tender - Musculoskeletal Back: Normal (Non-Tender) Extremities: Normal (Normal tone, Pulses 2+ No cyanosis or edema, FROM) - Integumentary Skin: Normal (Warm dry no rashes) Lymphatics: Normal (no adenopathy) - Neurologic Memory Impaired: Normal Motor Function: Normal (Motor 5/5 throughout.Normal tone, Pulses 2+ No cyanosis or edema, FROM) Cranial Nerve: Normal (CN II-XII intact sensation, strength 5/5) Cerebellar: Normal (Babinski: toes downgoing bilaterally. Intact Finger to nose. Sensory grossly intact to light touch. Intact rapid alternating movements bilaterally. No pronator drift.) Mood Description: Normal Perception: Normal - Other Exam Other Exam Findings: Abnormal Lab Results 06/14/16 06/14/16 06/15/16 16:31 20:24 05:26 RBC MCV MCH RDW MPV Potassium Glucose POC Capillary Glucose 273 H 141 H 158 H Calculated Osmolality Calcium Magnesium 06/15/16 06/15/16 06/15/16 06:28 06:28 11:14 RBC 3.26 L MCV 112 H MCH 39.6 H RDW 14.8 H MPV 7.1 L Potassium 3.2 L Glucose 135 H POC Capillary Glucose 166 H Calculated Osmolality 266 L Calcium 8.3 L Magnesium 1.30 L
[2016-06-16] MEDS ORDERED: MetFORMIN 500 MG IMMED RELEASE TAB PO SCH (07:00)
[2016-06-16] MEDS ORDERED: GLIPIZIDE 5 MG PO SCH (07:00)
[2016-06-16] MEDS ORDERED: VITAMINS,PRENATAL TABLET PO SCH (12:00)
[2016-06-16] MEDS ORDERED: THIAMINE 100 MG TAB PO SCH (12:00)
== END 2016-06-15 16:24 | disposition home or self-care (01) | DRG 641 ==
LOC: ED 15:01 → MPS3 20:11
PROVIDERS: ADMIT Internal Medicine; ATTEND Hospitalist
DX: E87.1 Hypo-osmolality and hyponatremia (principal); E11.65 Type 2 diabetes mellitus with hyperglycemia; I10 Essential (primary) hypertension; J44.9 Chronic obstructive pulmonary disease, unspecified; K58.0 Irritable bowel syndrome with diarrhea; I48.91 Unspecified atrial fibrillation; J45.909 Unspecified asthma, uncomplicated; K21.9 Gastro-esophageal reflux disease without esophagitis; F32.9 Major depressive disorder, single episode, unspecified; F10.10 Alcohol abuse, uncomplicated; Z90.49 Acquired absence of other specified parts of digestive tract; Z72.0 Tobacco use; Z71.6 Tobacco abuse counseling; Z88.5 Allergy status to narcotic agent; Z79.84 Long term (current) use of oral hypoglycemic drugs; Z79.51 Long term (current) use of inhaled steroids
CPT/HCPCS: 36415; 71020; 80048; 80053; 81001; 82962; 83036; 83735; 83880; 84439; 84443; 84481; 84484; 85007; 85027; 85610; 85730; 93005; 94640; 96361; 96372; 96374; 96375; 99284; 99406; A9153; J1650; J2405; J2930; J3411; J3490; J7620